=== PATIENT | male | born 1995 | race Caucasian/White ===

== ENCOUNTER 2019-01-18 18:16 | Emergency (ER) | payer SELFPAY ==
[2019-01-19] MEDS: KETOROLAC 30 MG INJ IM (00:19)
[2019-01-19] MEDS: HYDROCODONE/APAP (5/325) TAB PO (00:20)
== END 2019-01-19 01:45 | disposition home or self-care (01) ==
LOC: FTE 18:16
DX: S40.011A Contusion of right shoulder, initial encounter (principal); W01.0XXA Fall on same level from slipping, tripping and stumbling without subsequent striking against object, initial encounter; Y92.9 Unspecified place or not applicable
CPT/HCPCS: 73030; 73030-RT; 96372; 99284-25